=== PATIENT | female | born 2000 | race Two or more races ===

== ENCOUNTER 2021-12-29 12:29 | Emergency (ER) | payer MEDICAID, OTHER ==
[~2021-12-29] VITALS: Ht 160 cm; Wt 62.2 kg
[2021-12-29 12:49] VITALS: BP 104/69
== END 2021-12-30 01:15 | disposition left against medical advice (07) ==
LOC: ER 12:29
DX: R10.30 Lower abdominal pain, unspecified (principal); Z53.21 Procedure and treatment not carried out due to patient leaving prior to being seen by health care provider

== ENCOUNTER 2023-04-21 23:58 | Emergency (ER) | payer MEDICAID ==
[~2023-04-21] VITALS: Ht 160 cm; Wt 57.7 kg
[2023-04-22 00:37] LABS: Basophils # (auto) 0 10 ^3/uL (0-0.2); Basophils % (auto) 0.1 % (0.0-2.0); Eosinophils # (auto) 0 10 ^3/uL (0-0.8); Hematocrit 46.5 % (36.0-46.0); Hemoglobin 15.8 g/dL (12.2-16.2); Lymphocytes # (auto) 0.8 10 ^3/uL (0.4-5.4); Lymphocytes % (auto) 4.5 % (10.0-50.0); Mean Corpuscular Hemoglobin 29.4 pg (28.0-32.0); Mean Corpuscular Volume 86.5 fL (80.0-100.0); Monocytes # (auto) 0.6 10 ^3/uL (0-1.3); Monocytes % (auto) 3.1 % (0.0-12.0); Neutrophils # (auto) 17.2 10 ^3/uL (1.6-8.6); Neutrophils % (auto) 92.3 % (37.0-80.0); Nucleated Red Blood Cells % 0.1 %; Red Blood Cells 5.37 10^6/uL (4.0-5.20); Red Cell Distribution Width 12.8 % (11.8-14.3); White Blood Cell 18.6 10^3/uL (4.4-10.8)
[2023-04-22 00:53] LABS: Alanine Aminotransferase 19 U/L (7-40); Albumin 5.2 g/dL (3.2-4.8); Alkaline Phosphatase 70 U/L (46-116); Anion Gap 11 (5-15); Aspartate Aminotransferase 18 U/L (13-40); BUN/Creatinine Ratio 12.3 (10.0-20.0); Bilirubin, Total 1.3 mg/dL (0.2-1.0); Blood Urea Nitrogen 10 mg/dL (9-23); Calcium 10.2 mg/dL (8.7-10.4); Carbon Dioxide 22 mmol/L (20-30); Chloride 103 mmol/L (98-107); Glucose 140 mg/dL (74-106); Lipase 44 U/L (12-53); Sodium 136 mmol/L (136-145); Total Protein 8.7 g/dL (5.7-8.2)
[2023-04-22 02:07] LABS: Urine Bacteria FEW /hpf (None Seen); Urine Blood Negative /uL (Negative); Urine Clarity Clear (Clear); Urine Color Colorless (Yellow); Urine Protein, UAD Negative (Negative); Urine Urobilinogen Normal (Negative); Urine WBC <1 /hpf (0 - 5); Urine pH 7.5 (5.0-8.0)
[2023-04-22] MEDS: DICYCLOMINE HCL (10MG/ML) 2 ML AMPULE IM ONE (02:42)
[2023-04-22] MEDS: ONDANSETRON ODT 4 MG TAB PO ONE (02:42)
[2023-04-22] MEDS ORDERED: DICY10CA PO (04:26)
[2023-04-22] MEDS ORDERED: ZOFR4T PO (04:26)
[2023-04-22 05:00] VITALS: BP 96/46; PULSE 117; RESP 18; TEMP 98.2; O2SAT 95
== END 2023-04-22 05:03 | disposition home or self-care (01) ==
LOC: ER 23:58
DX: R10.13 Epigastric pain (principal); R10.2 Pelvic and perineal pain; R11.2 Nausea with vomiting, unspecified
CPT/HCPCS: 36415; 74176; 80053; 81001; 83690; 84702; 85025; 96372; 99285; J0500; Q0162